=== PATIENT | female | born 1945 | race Caucasian/White ===

== ENCOUNTER 2017-04-25 13:50 | Emergency (ER) | payer MEDICARE, BC ==
[2017-04-25] MEDS ORDERED: ACETAMINOPHEN 325 MG TABLET ONE (14:46)
[2017-04-25] MEDS ORDERED: ACETAMINOPHEN 325 MG TABLET PO ONE (14:47)
[2017-04-25 15:05] LABS: Hematocrit 39.8 % (37.0-47.0); Hemoglobin 13.4 gm/dL (12.5-16.0); Mean Cell Volume 93.9 fl (78-100); Mean Corpuscular Hemoglobin 31.6 pg (27-31); Mean Corpuscular Hgb Conc 33.7 g/dl (32-36); Mean Platelet Volume 8.9 fl (6.0-9.5); Neutrophil # 4.7 K/mm3 (1.3-6.0); Neutrophil % 79.3 % (42-75.0); Platelet Count 200 K/mm3 (150-450); Red Blood Count 4.24 M/mm3 (4.2-5.4); White Blood Count 5.9 K/mm3 (4.0-10.5)
--- NOTE | 2017-04-25 15:07 | ERNOTE ---
Medical Problem HPI - General Chief Complaint: General Assessment Time Seen by Provider: 04/25/17 15:05 Source: patient Exam Limitations: no limitations - Immun/Allergies/Home Medications Allergies/Adverse Reactions: Allergies No Known Allergies Allergy (Verified 04/25/17 14:02) Home Medications: HOME MEDICATIONS Losartan Potassium [Cozaar] 100 mg PO DAILY 09/21/14 [Last Taken 12/28/14] Sulfamethoxazole/Trimethoprim [Bactrim Ds] 1 tab PO BID #14 tab 04/25/17 [Last Taken Unknown] - History of Present History Narrative: Patient was on the last day of her cruise when two nights ago she started to have a headache, slight cough. She had not felt well, fatigued, increased urinary frequency Date (Duration): 04/23/17 Review of Systems - Review of Systems Constitutional: Present: fever, chills, fatigue, malaise. Absent: recent illness EYE: Absent: vision changes ENT: Present: nose congestion, nasal drainage. Absent: sore throat Respiratory: Present: cough. Absent: shortness of breath Cardiology: Absent: chest pain Gastrointestinal/Abdominal: Present: nausea. Absent: vomiting, diarrhea, abdominal pain Genitourinary: Present: frequency. Absent: pain, dysuria Musculoskeletal: Absent: back pain Skin: Absent: rash Neurological: Present: headache. Absent: weakness, numbness - Patient's Past Medical History Patient History - Medical: No pertinent hx Patient History - Cardiac/Respiratory: Hypertension, Hyperlipidemia Patient History - Cancer: Breast Patient History - Surgical Procedures: Cancer Surgery, Cholecystectomy, Hysterectomy, Other Patient History - Other: None - Social History Living Situations: home Psych History: No pertinent hx Alcohol Use: rarely Drug Use: none Physical Exam - Physical Exam General Appearance: Present: wd/wn, alert, no apparent distress Eye Exam: Normal inspection: bilateral Ears, Nose, Throat: Present: normal ENT inspection, normal pharynx Neck: Present: normal inspection, nontender, supple, full range of motion Respiratory: Present: no respiratory distress, normal breath sounds, no accessory muscle use, chest nontender, lungs clear Cardiovascular/Chest: Present: regular rate, rhythm, no murmur Gastrointestinal/Abdominal: Present: normal bowel sounds, nontender, nondistended, soft Back Exam: Present: no CVA tenderness Neurological Exam: Present: alert, oriented, normal mood/affect Skin Exam: Present: normal color, warm/dry ED Progress - Results and Orders Patient's Lab Results:: I have reviewed the patient's lab results. - Vital Signs Patient's Vital Signs:: I have reviewed the patient's vital signs. Vital Signs: Vital Signs 04/25/17 13:56 Temperature 38.2 C H Pulse Rate 98 Respiratory 12 Rate Blood Pressure 156/69 O2 Sat by Pulse 98 Oximetry - X-Ray X-Ray #1 X-Ray: chest - no acute changes Interpretation: Reviewed by me - Progress/Reassessment Chief Complaint: General Assessment Progress Note-Subjective: 04/25/17 16:32 discussed lab results and plan Departure - Departure Clinical Impression: URI (upper respiratory infection) Qualifiers: URI type: unspecified viral URI Qualified Code(s): J06.9 - Acute upper respiratory infection, unspecified; B97.89 - Other viral agents as the cause of diseases classified elsewhere UTI (urinary tract infection) Qualifiers: Urinary tract infection type: acute cystitis Hematuria presence: with hematuria Qualified Code(s): N30.01 - Acute cystitis with hematuria Disposition: Home self-care Condition: Good Instructions: Upper Respiratory Infection, Adult, [id number], Urinary Tract Infection, Adult, [id number] Additional Instructions: drink plenty of fluids and get rest Referrals: Carri Pang MD [Primary Care Provider] - Prescriptions: Sulfamethoxazole/Trimethoprim [Bactrim Ds] 1 tab PO BID #14 tab
[2017-04-25 15:18] LABS: Anion Gap 12.5 mmol/L (6.8-13.8); BUN/Creatinine Ratio 15.6 (9.0-21.6); Bilirubin, Total 0.9 mg/dL (0.0-1.1); Ca. Corrected For Albumin 9.2 mg/dL (8.4-10.2); Calcium * 9.5 mg/dL (7.9-10.9); Carbon Dioxide 30.3 mmol/L (24-32.6); Potassium 3.8 mmol/L (3.4-4.6); Total Protein 8.2 gm/dL (6.2-8.2)
[2017-04-25 15:44] LABS: Urine Bilirubin Negative (NEGATIVE); Urine Blood 250 /ul (NEGATIVE); Urine Ketone 5 mg/dL (NEGATIVE); Urine Nitrite Negative (NEGATIVE); Urine Protein 15 mg/dL (NEGATIVE); Urine Specific Gravity <=1.005 SP.GR. (1.005-1.010); Urine Urobilinogen Normal (NORMAL)
[2017-04-25 16:24] LABS: Urine Appearance Slightly Cloudy; Urine Bacteria 1+; Urine Color Yellow; Urine RBC 25-50 /hpf (0-5)
[2017-04-25 16:52] VITALS: BP 145/87
== END 2017-04-25 16:35 | disposition home or self-care (01) ==
LOC: ER 13:50
DX: J06.9 Acute upper respiratory infection, unspecified (principal); B97.89 Other viral agents as the cause of diseases classified elsewhere; N30.01 Acute cystitis with hematuria; I10 Essential (primary) hypertension; Z85.3 Personal history of malignant neoplasm of breast